=== PATIENT | male | born 1965 | race Caucasian/White ===

== ENCOUNTER → 2019-07-31 | Outpatient (CLI) | payer OTHER ==
[~2019-07-31] MED LIST: ASPIRIN325 PO; ATORVASTATIN CA40 MG PO; COZAAR 25 MG TA25 M2 PO; DEPAKOTE ER500 MG PO; DEPAKOTE125 MG; Depakote PO; EFFIENT10 MG PO; FISH OIL 1,001000 M2 PO; NITROGLYCERIN0.4 MG SL; PLAVIX 75 MG TA75 M1 PO; TOPROL XL25 MG PO; TRIAMTERENE; TRIAMTERENE-HC1 EAC2 PO; WELLBUTRIN 100100 MG PO
== END ==
LOC: MRI 11:50
DX: G91.2 (Idiopathic) normal pressure hydrocephalus (principal); Z98.2 Presence of cerebrospinal fluid drainage device

== ENCOUNTER → 2020-05-19 | Outpatient (CLI) | payer OTHER | LOC: SJCVCIMAG 09:57 | PROVIDERS: ATTEND Internal Medicine Cardiovascular Disease | DX: I25.10 Atherosclerotic heart disease of native coronary artery without angina pectoris (principal); I10 Essential (primary) hypertension; E78.5 Hyperlipidemia, unspecified ==